=== PATIENT | male | born 1950 | race Caucasian/White ===

== ENCOUNTER 2024-08-17 14:43 | Emergency (ER) | payer MEDICARE ==
[~2024-08-17] VITALS: Ht 175.3 cm; Wt 125.0 kg
[~2024-08-17 14:43] MED LIST: ALLO100T MT; ASPI-1497 MT; ATOR40TA70 MT; CLON0.252 MT; CLOP75TA33 MT; ESCI5TAB16 MT; LEVO75TA7 MT; LOSA100T33 MT; MELA5TAB19 MT
[2024-08-17 14:47] VITALS: BP 142/80; PULSE 69; RESP 18; TEMP 36.7; O2SAT 94
== END 2024-08-17 21:10 | disposition home or self-care (01) ==
LOC: ER 14:43
DX: S13.4XXD Sprain of ligaments of cervical spine, subsequent encounter (principal); Z98.1 Arthrodesis status; F41.9 Anxiety disorder, unspecified; I10 Essential (primary) hypertension; F32.A Depression, unspecified; E78.00 Pure hypercholesterolemia, unspecified; Z79.899 Other long term (current) drug therapy; Z79.82 Long term (current) use of aspirin; Z79.02 Long term (current) use of antithrombotics/antiplatelets; X58.XXXD Exposure to other specified factors, subsequent encounter
CPT/HCPCS: 99281; 99283